=== PATIENT | male | born 1955 | race Caucasian/White ===

== ENCOUNTER 2016-12-07 10:05 | Day surgery (SDC) | payer OTHER ==
[~2016-12-07] VITALS: Ht 175.3 cm; Wt 75.7 kg
[~2016-12-07 10:05] MED LIST: HEPARIN-NS/PF INJ 500 ML ONE; MIDAZOLAM HCL 5 MG/5 ML VIAL ONE
[2016-12-07 11:03] VITALS: BP 142/78; PULSE 61; RESP 16; TEMP 98.6; O2SAT 98
[2016-12-07 11:28] LABS: AUTOMATED NEUTROPHIL # 3.5 TH/MM3 (1.8-7.7); BASOPHIL % 0.6 % (0.0-2.0); EOSINOPHIL # 0.1 TH/MM3 (0-0.4); EOSINOPHIL % 2.6 % (0.0-4.0); HEMATOCRIT 41.9 % (39.0-51.0); HEMO FLAGS DIFF FINAL; LYMPHOCYTE # 1.2 TH/MM3 (1.0-4.8); MEAN CELL VOLUME 87.6 FL (80.0-100.0); MEAN CORPUSCULAR HEMOGLOBIN 29.8 PG (27.0-34.0); MONO % 9.7 % (0.0-8.0); NEUT % 64.1 % (16.0-70.0); PLATELET COUNT 160 TH/MM3 (150-450); RED BLOOD COUNT 4.79 MIL/MM3 (4.50-5.90); RED CELL DISTRIBUTION WIDTH 13.7 % (11.6-17.2); WHITE BLOOD COUNT 5.4 TH/MM3 (4.0-11.0)
[2016-12-07] MEDS ORDERED: ASPIRIN 81 MG CHEW TAB PO PRN (11:30)
[2016-12-07 11:34] LABS: APTT (PATIENT) 27.8 SEC (24.3-30.1); INTERNATIONAL NORMALIZED RATIO 0.9 RATIO; PROTHROMBIN TIME - PATIENT 10.1 SEC (9.8-11.6)
[2016-12-07 11:38] LABS: BICARBONATE 30.6 MEQ/L (21.0-32.0); POTASSIUM 4.1 MEQ/L (3.5-5.1)
[2016-12-07] MEDS ORDERED: HEPARIN-NS/PF INJ 500 ML ONE (12:02)
[2016-12-07] MEDS ORDERED: MIDAZOLAM HCL 2 MG/2 ML VIAL ONE (13:10)
[2016-12-07] MEDS ORDERED: IOHEXOL 350 MG/ML 100 ML BTL (for Cath Lab) OTHER ONE (13:15)
--- NOTE | 2016-12-07 13:21 | CATHPROC ---
[employer] HIS Report Study Information Study Number Scheduled Start Study Start [id number] 12/07/2016 Dec 07 2016 11:47AM Referring Institution Admit Source Facility Department 1 Other [facility] - Financial Intern Physician and Clinical Staff Initial Ramone Rae Commercial Decorator Brooke Powell,RN Recorder Ricky Pena,RT(R) Dinesh Hines,RT(R) Procedures Performed Procedure Location (Site) Vessel Name Coronary Angiograms LCA Left Coronary Coronary Angiograms RCA Right Coronary L Heart Cath LV Gram-hand inj. LV LV Ventricle Equipment Time Pr Manager Description Size Mfg Part Number Used/Scraped TRANSDUCER, TRUWAVE 12:09 CARRILLO PERALES * [id number] Used W/STOCKCOCK [id number] *[id number] *[id number] 12:09 [employer] INDUSTRIES PACK, CCL CUSTOM * Used *[id number] 12:09 [employer] PACER PEN, SKIN DUAL W/ RULER * [id number] Used [id number] 12:09 [employer] WIRE, 3MMJ .035 180CM 180CM Used *[id number] 12:09 NAMIC MANIFOLD, 4 PORT * Used *[id number] 12:09 NY[employer]ED OMNIPAQUE, 350 MG, 150ML 150ML [id number] Used [id number] 12:09 [employer] MEDICAL BLANKET,WARM AIR CCL * Used *[id number] 12:09 [employer] MEDICAL SHEATH, FR4 TERUMO (10CM) FR 4 [id number] Used History: Allergies Allergy Reaction No Known Allergies History: Risk Factors Family History of Hypertension Dyslipidemia Previous MD Previous Heart Failure Premature CAD No Yes Yes No No Prior Valve Prior PCI Prior CABG Surgery No No No Cerebrovascular Peripheral Artery Chronic Lung On Dialysis Diabetes Disease Disease Disease No No No No No History: Stress Tests Stress or Imaging Studies Performed Yes Standard Exercise Stress Test No Stress Echo No Stress Test SPECT Stress Test SPECT Result Stress Test SPECT Ischemia Risk/Extent Yes Positive High Stress Test CMR No Cardiac CTA Coronary Calcium Score No No Labs Hgb (g/dl) Hct (%) WBC (l/cumm) Platelets (thousands) 12.00-18.00 37.00-55.00 4.80-10.80 140.00-450.00 14.3 41.9 5.4 160 Glucose (mg/dl) BUN (mg/dl) Creatinine (mg/dl) BUN:Creatinine (1:x) 60.00-110.00 8.00-20.00 0.10-9.00 10.00-20.00 94 17 1.1 15.5 Na (meq/l) K (meq/l) 138.00-146.00 3.80-5.10 140 4.1 CPK-MB (ng/ML) 0.00-7.00 Not Drawn Medication Medication Total Dose (Bolus/Oral) Medication Total Dosage/Unit 1% XYLOCAINE 20 mL VERSED 2 mg Medications (Bolus/Oral) Medication Time Given Dosage/Unit Administered By Reason 1% XYLOCAINE 12/07/2016 1:09:11 PM 20 mL Brooke Powell Patient arrived on 20 mL 1% XYLOCAINE given by Brooke Powell RN in Right Groin via Subcutaneous. VERSED 12/07/2016 1:11:01 PM 1 mg Adamy, Brooke 1 mg VERSED given in lab by Brooke Powell RN in Left Antecubital via Peripheral IV. VERSED 12/07/2016 1:13:44 PM 1 mg Adamy, Brooke 1 mg VERSED given in lab by Brooke Powell RN in Left Antecubital via Peripheral IV. Ordered by Ramone Ruano. Medication (Drip) Medication Time Given Dosage/Unit Concentration/Unit Diluent (ml) Solution IV Solutions 12/07/2016 12:04:48 PM 0 mL (IV) 500 NaCl .9 Patient arrived on IV Solutions given by Ramone Oneill in Left Antecubital via Peripheral IV. Pump /Drip Flow = 20 ml/hr using NaCl .9. Initial Case Assessment Cardiovascular HR Rhythm NIBP Chest Pain 65 sr 160/88 0 Edema Present Skin color Skin None Normal Warm Dry Circulatory - Right Pulses Dorsalis Pedis Femoral 3 3 Scale (0,1,2,3,4,d) Circulatory - Left Pulses Dorsalis Pedis Femoral 3 3 Scale (0,1,2,3,4,d) Neurological State Oriented to time-place- Alert Moves all extremities person Respiration - General Respiration Rate SpO2 (%) O2 (lpm) (B/min) 18 99 0 Final Case Assessment Cardiovascular HR Rhythm NIBP Chest Pain 66 sr 153/88 0 Edema Present Skin color Skin None Normal Warm Dry Circulatory - Right Pulses Dorsalis Pedis Femoral 3 3 Scale (0,1,2,3,4,d) Circulatory - Left Pulses Dorsalis Pedis Femoral 3 3 Scale (0,1,2,3,4,d) Neurological State Oriented to time-place- Alert Moves all extremities person Respiration - General Respiration Rate SpO2 (%) O2 (lpm) (B/min) 18 99 0 Chronological Log Time Study Chronological Log 12:01:42 Patient arrived via Bed. 12:01:43 Patient Name, D.O.B, / Armband Verified By R.N. 12:01:45 Consent signed by the physician and the patient and verified by the Financial Intern staff. 12:01:46 Pre-op and post- op instructions given; patient acknowledges understanding of instructions. 12:01:48 Verbal Stimulation=2 Physical Stimulation=2 Airway=2 Respiration=2 TOTAL=8. (0=absent, 1=li mited, 2=present) 12:02:06 Presedation assessment performed by Financial Intern RN. 12:02:08 Patient has been NPO for More than 6Hrs. Vitals capture started with the following parameters, Patient=Adult, Interval=15 min, Initial P yhdwtsl=386 mmHg, 12:03:22 Deflation Rate=5 mmHg 12:04:12 Skin Breakdown-none present per patient. 12:04:22 KM=027 bpm, XPTL=594/88 mmhg, SpO2=98.0 %, Resp=1 B/min, Byrd=2 12:04:34 A # 20 IV was noted in the Antecubital (left). Grade = 0 Patient arrived on IV Solutions given by Ramone Oneill in Left Antecubital via Peripheral IV . Pump/Drip Flow = 20 12:04:48 ml/hr using NaCl .9. 12:05:09 History and physical on the chart or being dictated. Assessment: Initial Case, HR=65 BPM, Rhythm=sr, OXVH=465/88 mmhg, Chest Pain=0, Edema=None, Col or=Normal, Skin = Warm, Dry Right Pulses: Bk Ped=3, Femoral=3 12:05:11 Left Pulses: Bk Ped=3, Femoral=3 Neurological: State=Alert, Ox3, APONTE Respiration: Resp=18 B/min, SpO2=99 %, O2=0 lpm 12:05:46 Bilateral groins prepped with 2% chlorhexidine, and with a 3 min. waiting time. 12:09:02 HR=60 bpm, LHFV=891/88 mmhg, SpO2=99.0 %, Resp=7 B/min, Byrd=2 12:13:33 Reference ECG taken 12:13:59 HR=94 bpm, VOXI=650/94 mmhg, YuG2=290.0 %, Resp=11 B/min, Byrd=2 12:19:05 HR=63 bpm, SQGD=643/85 mmhg, SpO2=98.0 %, Resp=12 B/min, Byrd=2 12:20:05 Pressure channel 1 zeroed. 12:20:30 MD responded. Will arrive at 1245. 12:24:02 HR=58 bpm, HBHG=245/81 mmhg, SpO2=96.0 %, Resp=13 B/min, Byrd=2 12:28:58 HR=62 bpm, RJKE=022/84 mmhg, SpO2=96.0 %, Resp=22 B/min, Byrd=2 12:34:02 HR=61 bpm, KFHQ=935/84 mmhg, SpO2=97.0 %, Resp=22 B/min, Byrd=2 12:39:03 HR=58 bpm, HNZX=346/81 mmhg, SpO2=97.0 %, Resp=22 B/min, Byrd=2 12:44:02 HR=54 bpm, OUHV=733/82 mmhg, SpO2=95.0 %, Resp=22 B/min, Byrd=2 12:49:01 HR=68 bpm, PTPE=437/87 mmhg, SpO2=95.0 %, Resp=22 B/min, Byrd=2 12:54:04 HR=56 bpm, AJAB=911/79 mmhg, SpO2=97.0 %, Resp=16 B/min, Byrd=2 12:59:01 HR=61 bpm, QXIN=257/87 mmhg, SpO2=99.0 %, Resp=24 B/min, Byrd=2 13:04:06 HR=58 bpm, OUYE=080/77 mmhg, SpO2=96.0 %, Resp=14 B/min, Byrd=2 13:05:45 MD arrived. Time Out. Correct patient, correct procedure,correct physician, ,power injector not loaded with contrast with surgical 13:08:29 team present. Time Out Concurred by MD, individual staff and DATABASE OPERATOR in procedure. Not loaded at t his time. 13:08:51 Presedation re-assessment performed by Financial Intern RN. 13:08:53 Case Start 13:08:54 Verbal Stimulation=2 Physical Stimulation=2 Airway=2 Respiration=2 TOTAL=8. (0=absent, 1=li mited, 2=present) 13:09:11 Patient arrived on 20 mL 1% XYLOCAINE given by Brooke Powell, TRAVIS in Right Groin via Subcu taneous. 13:09:42 HR=70 bpm, YLFX=239/89 mmhg, SpO2=98.0 %, Resp=11 B/min, Byrd=2 13:11:01 1 mg VERSED given in lab by Brooke Powell, TRAVIS in Left Antecubital via Peripheral IV. 13:11:16 Access site was Right Femoral Artery. 13:11:23 A SHEATH, FR4 TERUMO (10CM) FR 4 was advanced into the Fem Art (right) using the [place] us technique. A JL 4.0 INFINITI CATHETER FR 4 was advanced over a wire. OMNIPAQUE, 350 MG, 150ML 150ML was us ed for 13:11:32 injections. Recorded Pressure: LV, HR=74, Condition=Condition 1 13:12:18 (Left Ventricle) LV 155/11/22 13:12:25 The LV was manually injected with 10 cc's and visualized. OMNIPAQUE, 350 MG, 150ML 150ML us ed. Recorded Pressure: LV, Ao, HR=79, Condition=Condition 1 13:12:31 (Left Ventricle) LV 160/2/15, (Aorta) Ao 166/86/123 Recorded Pressure: Ao, HR=72, Condition=Condition 1 13:12:56 (Aorta) Ao 144/76/105 13:13:08 The RCA was injected and visualized at various angles. OMNIPAQUE, 350 MG, 150ML 150ML used . 13:13:44 1 mg VERSED given in lab by Brooke Powell, TRAVIS in Left Antecubital via Peripheral IV. Orde red by Ramone Oneill. 13:14:01 Catheter was removed A JL 4.0 INFINITI CATHETER FR 4 was advanced over a wire. OMNIPAQUE, 350 MG, 150ML 150ML was us ed for 13:14:03 injections. 13:14:06 HR=68 bpm, WHAD=792/88 mmhg, SpO2=96.0 %, Resp=15 B/min, Byrd=2 13:14:14 The LCA was injected and visualized at various angles. OMNIPAQUE, 350 MG, 150ML 150ML used . 13:15:22 Catheter was removed Assessment: Final Case, HR=66 BPM, Rhythm=sr, ZYEA=245/88 mmhg, Chest Pain=0, Edema=None, [place] r=Normal, Skin = Warm, Dry Right Pulses: Bk Ped=3, Femoral=3 13:16:55 Left Pulses: Bk Ped=3, Femoral=3 Neurological: State=Alert, Ox3, APONTE Respiration: Resp=18 B/min, SpO2=99 %, O2=0 lpm 13:17:26 Catheter(s) removed without difficulty 13:17:27 Sheath(s) left in place, will be removed in Holding Area 13:17:29 Case End 13:17:31 Sterile dressing applied to site 13:17:36 No case complications noted. 13:17:39 Cine recording checked. 13:17:44 Contrast Scanned 13:17:50 A Left Heart Cath was performed. 13:19:28 Vitals capture stopped. 13:20:[facility] - Cont[facility] Media Used In Study Contrast Total Opened (mL) Total Used (mL) Total Wasted (mL) Omnipaque 30 30 0 End Study - Maximum Contrast Load Max Contrast Load (mL) 343.0 End Study - Radiation Exposure Fluoro Time (minutes) 1.2 End Study - Patient Disposition Complications Transferred To Telemetry Bed
[2016-12-07] MEDS ORDERED: VIAG100T PO (13:55)
[2016-12-07] MEDS ORDERED: ASPI81TA11 PO (13:55)
[2016-12-07] MEDS ORDERED: SODIUM CHLORIDE 0.9% FLUSH 10 ML FLUSH PRN (14:00)
[2016-12-07] MEDS ORDERED: MISC INFORMATION XX ONE (14:00)
--- NOTE | 2016-12-07 16:22 | EKG ---
Date Performed: 12/07/2016 Time Performed: 11:31:52 PTAGE: 61 years EKG: Sinus rhythm Right bundle branch block Abnormal ECG NO PREVIOUS TRACING DOCTOR: Bob Baron Interpretating Date/Time 12/07/2016 16:22:30
[2016-12-07] MEDS ORDERED: SODIUM CHLORIDE 0.9% FLUSH 10 ML FLUSH SCH (21:00)
--- NOTE | 2016-12-07 22:39 | MR ---
cc: LELAND GILBERT MD DATE 12/07/16 PROCEDURE 1. Left heart catheterization. 2. Left ventriculography. 3. Coronary angiography. INDICATIONS Citizen [place] Cardiovascular Society Class IV angina, unstable angina, coronary artery disease. High-risk nuclear stress test, moderate size reversible defect in the anteroapical and inferior wall, large fixed defect in the inferior wall and apical wall, gated SPECT ejection fraction 63%. Multiple cardiac risk factors, previous tobacco user, quit 3 years ago. The patient was brought to the cardiac catheterization laboratory, prepped and draped in the usual sterile fashion. 10 cc of 1% lidocaine was used to locally anesthetize the right common femoral artery. 4-Frisian sheath was successfully placed in the right common femoral artery. 4-Frisian JR-4, JL-4 catheters were used to perform left and right coronary angiography and left ventriculography. FINDINGS LV pressure 160/7-8, EF 55%. Right coronary artery is dominant, has mild diffuse disease in the proximal segment up to 5-10% angiographically. Left main coronary artery is a large vessel probably 5 mm in diameter at least with mild diffuse disease up to 10-20% angiographically. Left circumflex vessel has no significant obstructive disease. The first obtuse marginal vessel is a medium-sized vessel with minimal luminal irregularities up to 5% of the proximal vessel. LAD transapical. The vessel tapers from a 3.5 to 4 mm vessel in the proximal segment, down to a probably 1.5 mm vessel in the [id number] segment; however, there is no significant obstruction. First diagonal artery is a medium-sized vessel no significant obstructive disease. There is a ramus intermedius vessel which is a small to medium-sized vessel. No significant obstructive disease. CONCLUSION 1. Angiographically mild left main and two-vessel coronary disease in a right-dominant system. 2. Normal LV systolic function. 3. EF 55%. RECOMMENDATIONS Recommend medical management of coronary artery disease, cardiac risk factor modification. I have instructed the patient, myself personally, to start aspirin 81 milligrams daily. Will discuss risk and benefits and implement statin therapy if clinically tolerated when the patient follows up in the office with me on December 12, 2016. MD JUD Ramírez/NICKOLAS /1:24 PM /10:23 PM
== END 2016-12-07 16:30 | disposition home or self-care (01) ==
LOC: HCAT 10:05 → HDIC 10:06 → HCAT 16:30
PROVIDERS: ATTEND Internal Medicine Interventional Cardiology
DX: I25.110 Atherosclerotic heart disease of native coronary artery with unstable angina pectoris (principal); Z79.82 Long term (current) use of aspirin
CPT/HCPCS: 80048; 85025; 85610; 85730; 93005; 93458; C1769; C1893; J1644; J2250; J3010; Q9967